=== PATIENT | male | born 1940 | race African-American/Black ===

== ENCOUNTER → 2016-05-10 | Outpatient (CLI) | payer OTHER | LOC: HYPER 06:57 | DX: T81.31XD Disruption of external operation (surgical) wound, not elsewhere classified, subsequent encounter (principal); L89.892 Pressure ulcer of other site, stage 2; L97.512 Non-pressure chronic ulcer of other part of right foot with fat layer exposed; M86.371 Chronic multifocal osteomyelitis, right ankle and foot; E11.69 Type 2 diabetes mellitus with other specified complication; I70.235 Atherosclerosis of native arteries of right leg with ulceration of other part of foot; I70.261 Atherosclerosis of native arteries of extremities with gangrene, right leg; E11.22 Type 2 diabetes mellitus with diabetic chronic kidney disease; N18.6 End stage renal disease; E11.51 Type 2 diabetes mellitus with diabetic peripheral angiopathy without gangrene; Z99.2 Dependence on renal dialysis; Z79.4 Long term (current) use of insulin; Z89.512 Acquired absence of left leg below knee; Z89.421 Acquired absence of other right toe(s); Z96.649 Presence of unspecified artificial hip joint; Z87.891 Personal history of nicotine dependence; Y83.8 Other surgical procedures as the cause of abnormal reaction of the patient, or of later complication, without mention of misadventure at the time of the procedure ==

== ENCOUNTER → 2016-05-24 | Outpatient (CLI) | payer OTHER | LOC: HYPER 07:00 | DX: T81.31XD Disruption of external operation (surgical) wound, not elsewhere classified, subsequent encounter (principal); L97.512 Non-pressure chronic ulcer of other part of right foot with fat layer exposed; E11.621 Type 2 diabetes mellitus with foot ulcer; I70.235 Atherosclerosis of native arteries of right leg with ulceration of other part of foot; E11.69 Type 2 diabetes mellitus with other specified complication; M86.371 Chronic multifocal osteomyelitis, right ankle and foot; I70.261 Atherosclerosis of native arteries of extremities with gangrene, right leg; E11.22 Type 2 diabetes mellitus with diabetic chronic kidney disease; N18.6 End stage renal disease; Z99.2 Dependence on renal dialysis; E78.5 Hyperlipidemia, unspecified; E11.51 Type 2 diabetes mellitus with diabetic peripheral angiopathy without gangrene; Z87.891 Personal history of nicotine dependence; Y83.8 Other surgical procedures as the cause of abnormal reaction of the patient, or of later complication, without mention of misadventure at the time of the procedure ==